=== PATIENT | male | born 1975 | race Caucasian/White ===

== ENCOUNTER 2025-01-06 03:45 | Emergency (ER) | payer SELFPAY ==
--- OUTSIDE RECORDS SUMMARY | 2007-02-22 05:58 | XMS_ITS | Continuity of Care Document ---
Author Organization [facility] Address [address] [place] [phone] Phone Care Team Providers Care Bridge Leverman Name Role Phone Chata MALONE, Jae Unavailable Unava ilable Medications Medication Instructions Dosage Effective Dates (start - stop) Status Comments NEXIUM 20mg 20 mg Take once daily - Active Advil 100 mg Tab take as needed - Active TYLENOL 325MG CAPSULE take as needed - Act bradley Procedures Procedure Date Offic Cons New/estab Mod Advance Directives Directive Yes / No Effective Date File Name No Information Encounters Encounter Description Practice Location Reason(s) For Visit Diagnoses Date Provider Providers Copied on Encounter [facility], [address] [place] [address], [id number] tel:[phone] [facility] No Information 8 Chata Castillo [facility]. [address] [place] [address], [id number], . tel:[phone] Offic Cons New/estab Mod [facility], [address] [place] [address], [id number] tel:[phone] [facility] [employer] Family history of GI cancerHeartb urn 0200 6 No Information Referring Provider: Ac Acuña MD, [address] [place] [address], [id number]. tel:[phone] Family History Family Member Type Diagnosis Age At Onset No Information Payers Payer name Insurance type Covered green party ID Authoriza tion(s) [facility] [id number] Social History Type Description Quantity Date Captured Comments Sex Male Smoking Status No Information Chief Complaint And Reason For Visit No Information Reason For Referral Reason For Referral No Information History Of Present Illness Encounter Date Complaint History Of Prese nt Illness No Information Functional Status Date Functional Assessmen t No Information Instructions Date Instruction Additional Infor mation No Information Assessments Type Assessment Date No Information Patient Care Teams Name Effective Dates (start - stop) Status Members No Information
--- OUTSIDE RECORDS SUMMARY | 2020-04-03 19:00 | XMS_ITS | Continuity of Care Document ---
Author Organization [facility] Address [address], [place] [address] Phone Care Team Providers Care Strategic Sourcing Consultant Name Role Phone Georgiana Leon MD Unavailable Unavailable Procedures Procedure Date No Charge Subsequent Hospital Care Initial Hospital Care Advance Directives Directive Yes / No Effective Date File Name No Information Encounters Encounter Description Practice Location Reason(s) For Visit Diagnoses Date Provider Providers Copied on Encounter [facility], [address] [place] [address], [id number], tel:[phone] [facility] No Information 1 Carolyn Stoner. [address] [facility], [facility] [place], [id number] , [place]. tel:[phone] Referring Provider: Rito Guy, [facility] [place], [place], [address]. tel:[phone] Subsequent Hospital Care [facility], [address] [place] [address], [address], tel:[phone] [facility] Acute kidney failure, unspecifiedHyperc alcemia 1 Carolyn Stoner. [address] [facility], [facility] [place], [id number] , [place]. tel:[phone] Referring Provider: Mendoza Gamboa, [address] [place] [address] [address] [facility], [place], [address]. tel:[phone] Initial Hospital Care [facility], [address] [place] [address], [id number], tel:[phone] [facility] Acute kidney failure, unspecifiedHyperc alcemia 1 Carolyn Stoner. [address] [place] [address], [address], [place], [place], [id number] , . tel:[phone] Referring Provider: Mendoza Gamboa, [address] [place] [address] [address], [place], [address]. tel:[phone] Family History Family Member Type Diagnosis Age At Onset No Information Payers Payer name Insurance type Covered democrat ID Authoriza tremaine(s) [employer] Gold PPO [id number] Social History Type Description Quantity Date Captured Comments Sex Male Smoking Status No Information Chief Complaint And Reason For Visit No Information History Of Present Illness Encounter Date Complaint History Of Prese nt Illness No Information Instructions Date Instruction Additional Infor mation No Information Assessments Type Assessment Date No Information
--- NOTE | 2025-01-06 | ECG_ITS ---
Test Reason : TACHY Blood Pressure : */* mmHG Vent. Rate : 130 BPM Atrial Rate : 130 BPM P-R Int : 166 ms QRS Dur : 72 ms QT Int : 290 ms P-R-T Axes : 26 7 30 degrees QTcB Int : 426 ms Sinus tachycardia Septal infarct , age undetermined Abnormal ECG No previous ECGs available Referred By: Marina Watson Electronically Signed By: JAIRON SNYDER
[2025-01-06 03:46] VITALS: BP 169/107; PULSE 120; O2SAT 100
[2025-01-06 03:51] VITALS: BP 173/101; PULSE 124; RESP 20; TEMP 36.5; O2SAT 95; BMI 28.5
--- NOTE | 2025-01-06 03:57 | ED.GENADULT ---
HPI - General Adult General Chief complaint: Arrhythmia/Palpitations Stated complaint: ETOH & COCAINE USE,PALP X1HR, HR 125,BP 161/104 Source: patient and EMS Mode of arrival: EMS Limitations: no limitations History of Present Illness ED Provider: Dr. Marina Watson HPI narrative: patient comes to the emergency room via ambulance from home. Patient reports that he has been having heart racing that started a started using cocaine. 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 At this time, no pain other than the palpitations. Patient denies any shortness of breath. Patient admits that besides cocaine he also drinks alcohol. 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 Respiratory : No Cough, No Sputum, No Wheezing, No Smoke Exposure, No Dyspnea Gastrointestinal : No Nausea, No Vomiting, No Diarrhea, No Constipation, No abdominal Pain, No Hematochezia, No Melena Genitourinary : no irregular bleeding, No Dysuria, No Urinary Frequency, No Hematuria, No Urinary Incontinence, No Urgency, No Flank Pain, No Urinary Flow Changes, No Hesitancy Musculoskeletal : No joint pain, No Myalgias, No Joint Swelling Skin : No Skin Lesions, No rash Neuro : No Weakness, No Numbness, No Paresthesias, No Loss of Consciousness, No Dizziness, No Headache Psych : No Anxiety/Panic, No Depression, No SI/HI/AH/VH, Patient admits to using cocaine and alcohol Heme/Lymph: No Bruising, No Bleeding,No Lymphadenopathy Endocrine : No Polyuria, No Polydipsia, No Temperature Intolerance PMFSH Past Medical History Medical History (Updated 01/06/25 @ 05:30 by Marina Watson MD) Alcohol abuse Cocaine abuse Social History Social History Alcohol intake: current Smoked in Last 30 Days: No Use of substances other than those prescribed or required for medical reasons: Yes Substance Use Type: Crack/Cocaine Advance Directives: No Advance Directives Information Provided: Yes Physical Exam ED Exam Exam: Appearance: Alert. Oriented X3. No acute distress. Eyes: Pupils equal, round and reactive to light. ENT: Pharynx normal. Neck: Normal inspection. Neck supple. No lymph nodes noted. No crepitus CVS: tachycardic, heart rate between 120-130, Pulses normal. Normal S1 and S2 Respiratory: No respiratory distress. Breath sounds normal. No Wheezing. No rales Abdomen: Soft and nontender. No rigidity. No distention. Skin: Skin warm and dry. Normal skin color. Normal skin turgor. Extremities: No lower extremity edema. No Lacerations. No Rash Neuro: Oriented X 3. No motor deficit. No sensory deficit. Moving all extremities. No slurred speech. CN 2 through 12 grossly intact Psych: calm, cooperative, a bit anxious Vital Signs: Vital Signs - 24 hr 01/06/25 03:51 01/06/25 04:12 01/06/25 05:07 Temperature 97.7 F Pulse Rate 124 H 129 H 109 H Respiratory Rate 20 18 18 Blood Pressure 173/101 H 168/98 H 137/88 Pulse Oximetry 95 97 96 Oxygen Delivery Method Room Air Room Air Room Air BMI result Body Mass Index 28.5 Course Course Course Narrative: patient is a bit anxious, blood pressure in the 170s, tachycardic, having palpitations, no chest pain or shortness of breath. Patient just use cocaine. Patient has been given p.o. diazepam. Patient's labs and imaging pending. Medications Administered Discontinued Medications Generic Name Dose Route Start Last Admin Trade Name Freq PRN Reason Stop Dose Admin Diazepam 2 mg 01/06/25 04:02 01/06/25 04:17 Diazepam 2 Mg Tablet PO 01/06/25 04:03 2 mg ONCE ONE Administration Medical Decision Making Medical Decision Making MDM Narrative: EKG: Normal sinus rhythm, heart rate 130, no ST segment depression or elevation, no T-wave inversion, QTC 426 My interpretation of labs: No significant acute abnormality in patient's hematology. Patient's platelets 150, likely secondary to EtOH. MCV 100.5. No abnormality in patient's chemistry, AST and ALT slightly elevated secondary to EtOH abuse, T bili within normal limits, normal magnesium, troponin within normal limits. ETOH 223. After her dose of diazepam, patient's blood pressure improved to 137/88, heart rate proximally 100. Patient states that he is willing to make his own phone calls for detox. Patient does not want to take to the care team /power and recovery superintendent. I offered to the patient Librium. However, patient states that he is afraid that he will not be able to afford it because he does not have any shortness at all. Patient requested that we do not send the medication to the pharmacy. At this time, patient is alert, awake, alert and oriented x3, coherent, clinically sober, ambulatory with normal steady gait. Denies SI or HI Differential Diagnosis Differential Diagnoses: The differential diagnosis associated with the presentation includes ( alcohol intoxication, polysubstance abuse, drug side-effect) Admission/Observation Consideration of admission/observation: Escalation of care including admission/observation considered ( given patient's history of polysubstance abuse and symptoms, observation was considered.) Lab Data MDM Lab Attestation statement: I reviewed the patient's lab results. 01/06/25 04:07 01/06/25 04:07 Labs: Lab Results 01/06/25 Range/Units 04:07 WBC 5.7 (4.8-10.8) X10*3/uL RBC 4.20 L (4.60-5.80) X10*6/uL Hgb 14.8 (14.0-18.0) g/dl Hct 42.2 (42.0-52.0) % MCV 100.5 H (80.0-98.0) fL MCH 35.2 H (27.0-33.0) pg MCHC 35.1 (31.0-36.0) g/dl RDW 13.2 (11.0-16.0) % Plt Count 150 L (160-400) X10*3/uL MPV 9.2 L (9.4-12.4) fL Immature Gran % (Auto) 0.2 (0.0-0.4) % Neut % (Auto) 69.9 (45-73) % Lymph % (Auto) 15.4 L (20-40) % [place] % (Auto) 13.1 H (2-11) % Eos % (Auto) 0.7 (0-4) % Baso % (Auto) 0.7 (0-2) % Lymph # (Auto) 0.9 L (1.2-4.9) X10*3/uL [place] # (Auto) 0.8 (0.1-1.2) X10*3/uL Eos # (Auto) 0.0 (0.0-0.4) X10*3/uL Baso # (Auto) 0.0 (0.0-0.2) X10*3/uL Abs Immat Gran (auto) 0.01 (0.00-0.03) X10*3/uL Absolute Neuts (auto) 4.0 (2.0-8.3) x10*3/uL Absolute Nucleated RBC 0.000 (0.0-0.012) X10*3/uL Nucleated RBC % (auto) 0.0 (0.0-0.2) /100WBC Sodium 143 (135-145) mmol/L Potassium 3.9 (3.3-5.1) mmol/L Chloride 108 (96-108) mmol/L Carbon Dioxide 20 L (22-29) mmol/L Anion Gap 19 (12-20) BUN 10 (9-16) mg/dL Creatinine 0.73 (0.5-1.4) mg/dL Estim Creat Clear Calc 119.0 Estimated GFR > 60 Random Glucose 105 (60-115) mg/dL Calcium 9.0 (8.4-10.2) mg/dL Magnesium 2.1 (1.6-2.6) mg/dL Total Bilirubin 0.3 (0.0-1.0) mg/dL Direct Bilirubin 0.1 (0.0-0.5) mg/dL AST 89 H (5-37) U/L ALT 72 H (0-40) U/L Alkaline Phosphatase 90 (39-117) U/L Troponin I High Sens 3.8 (<3.5-35.0) ng/L Total Protein 8.0 (6.5-8.0) g/dL Albumin 4.9 (3.5-5.0) g/dL Ethyl Alcohol 223 mg/dL Independent Interpretation I performed an independent interpretation of an: EKG Critical Care Time Critical Care Time Critical Care Time: Yes Total Critical Care Time: 35 Attestation: Appearance: Alert. Oriented X3. No acute distress. Eyes: Pupils equal, round and reactive to light. ENT: Pharynx normal. Neck: Normal inspection. Neck supple. No lymph nodes noted. No crepitus CVS: Normal heart rate and rhythm. Pulses normal. Normal S1 and S2 Respiratory: No respiratory distress. Breath sounds normal. No Wheezing. No rales Abdomen: Soft and nontender. No rigidity. No distention. Skin: Skin warm and dry. Normal skin color. Normal skin turgor. Extremities: No lower extremity edema. No Lacerations. No Rash Neuro: Oriented X 3. No motor deficit. No sensory deficit. Moving all extremities. No slurred speech. CN 2 through 12 grossly intact Psych: calm, cooperative, normal affect Discharge Plan Discharge Clinical Impression: Palpitations, Alcohol abuse, Polysubstance abuse Patient Disposition: Home, Self-Care Instructions: Abuse of Alcohol (ED), Heart Palpitations (ED), Polysubstance Use Disorder (ED) Additional Instructions: Alcohol use disorder You were seen in the Emergency Department today for treatment of alcohol use disorder.? You may have been given medications to help with your withdrawal symptoms.? Please do not drink alcohol with them. This is very dangerous and can cause respiratory depression or other adverse reactions depending on the medication. If you would like to cut down or stop your alcohol use please consider calling our outpatient Addiction Treatment office:? [facility] (M-F 9a-5p) [address] [place] [address] You have also been given a list of treatment providers in the area that can assist as well.? If you experience seizures, vomiting blood, black stools, falls, severe headache, chest pain, fevers, trouble breathing, hallucinations or any other concerns you need to call 911 or seek immediate care. Please stay hydrated. Print Language: Brazilian
[2025-01-06 04:12] VITALS: BP 168/98; PULSE 129; RESP 18; O2SAT 97
[2025-01-06 04:25] LABS: Hematocrit 42.2 % (42.0-52.0); Hemoglobin 14.8 g/dl (14.0-18.0); Imm Gran Abs Auto 0.01 X10*3/uL (0.00-0.03); Imm Gran Pct Auto 0.2 % (0.0-0.4); Lymphocytes Absolute Auto 0.9 X10*3/uL (1.2-4.9); MANUAL DIFF FLAG NO; Mean Corpuscular HGB Conc 35.1 g/dl (31.0-36.0); Mean Corpuscular Hemoglobin 35.2 pg (27.0-33.0); Mean Corpuscular Volume 100.5 fL (80.0-98.0); NRBC Abs Auto 0.000 X10*3/uL (0.0-0.012); NRBC Pct Auto 0.0 /100WBC (0.0-0.2); Platelet Count 150 X10*3/uL (160-400); Red Blood Count 4.20 X10*6/uL (4.60-5.80); White Blood Count 5.7 X10*3/uL (4.8-10.8)
[2025-01-06 04:41] LABS: Alanine Aminotransferase 72 U/L (0-40); Albumin Level 4.9 g/dL (3.5-5.0); Alkaline Phosphatase 90 U/L (39-117); Anion Gap 19 (12-20); Aspartate Amino Transferase 89 U/L (5-37); Blood Urea Nitrogen 10 mg/dL (9-16); Calcium 9.0 mg/dL (8.4-10.2); Carbon Dioxide 20 mmol/L (22-29); Chloride 108 mmol/L (96-108); Creatinine Clr Calc Pharmacy 119.0; Estimated Glomerular Filt Rate > 60; Magnesium 2.1 mg/dL (1.6-2.6); Potassium 3.9 mmol/L (3.3-5.1); Sodium 143 mmol/L (135-145); Total Protein 8.0 g/dL (6.5-8.0)
[2025-01-06 04:48] LABS: Troponin-I High Sensitivity 3.8 ng/L (<3.5-35.0)
[2025-01-06 05:07] VITALS: BP 137/88; PULSE 109; RESP 18; O2SAT 96
[2025-01-06 05:32] VITALS: BP 137/88; PULSE 109; RESP 18; TEMP 36.7; O2SAT 96
== END 2025-01-06 05:39 | disposition home or self-care (01) ==
PROVIDERS: Emergency Provider Emergency Medicine
DX: I49.9 Cardiac arrhythmia, unspecified (principal); R00.2 Palpitations; F14.90 Cocaine use, unspecified, uncomplicated; F41.9 Anxiety disorder, unspecified; R00.0 Tachycardia, unspecified; Z51.81 Encounter for therapeutic drug level monitoring; Z79.899 Other long term (current) drug therapy
CPT/HCPCS: 36415; 80048; 80076; 80307; 83735; 84484; 85025; 93005; 99283; 99284

== ENCOUNTER → 2025-01-06 03:52 | Outpatient (BNV) | payer SELFPAY | PROVIDERS: Emergency Provider Emergency Medicine; Visit Provider Internal Medicine | DX: R00.0 Tachycardia, unspecified (principal) | CPT/HCPCS: 93010 ==